=== PATIENT | female | born 1960 | race Caucasian/White ===

== ENCOUNTER 2024-05-12 12:30 | Emergency (ER) | payer BC ==
[~2024-05-12] VITALS: Ht 160 cm; Wt 77.0 kg
[2024-05-12 12:31] VITALS: O2SAT 100
[2024-05-12] MEDS: ACETAMINOPHEN 325MG TABLET PO ONE (14:14)
[2024-05-12] MEDS: ONDANSETRON 4MG ODT PO ONE (14:15)
[2024-05-12 15:48] VITALS: BP 109/77; PULSE 87; RESP 18; TEMP 36.39180; O2SAT 100
== END 2024-05-12 15:48 | disposition home or self-care (01) ==
LOC: ER 12:30
DX: S09.90XA Unspecified injury of head, initial encounter (principal); M25.512 Pain in left shoulder; M25.552 Pain in left hip; J45.909 Unspecified asthma, uncomplicated; Z88.0 Allergy status to penicillin; V49.9XXA Car occupant (driver) (passenger) injured in unspecified traffic accident, initial encounter; Y93.89 Activity, other specified; Y92.89 Other specified places as the place of occurrence of the external cause; Y99.8 Other external cause status
CPT/HCPCS: 73502; 73030; 70450; 99284; Q0162; Z7610 ×2